=== PATIENT | female | born 1985 | race Hispanic/Latino ===

== ENCOUNTER 2018-07-23 01:09 | Emergency (ER) | payer SELFPAY ==
[2018-07-23] MEDS ORDERED: Morphine 4 MG/ML VIAL ONE (01:28)
[2018-07-23] MEDS ORDERED: Ondansetron PF 4 MG/2 ML Vial ONE (01:28)
[2018-07-23 01:31] LABS: #Basophils 0.1 thou/uL (0.0-0.2); #Eosinphils 0.1 thou/uL (0.0-0.7); #Lymphocytes 3.4 thou/uL (1.20-3.40); #Monocytes 0.6 thou/uL (0.11-0.59); #Neutrophils 3.5 thou/uL (1.40-6.50); %Basophils 1.5 % (0.0-1.0); %Eosinophils 1.4 % (0.0-10.0); %Lymphocytes 43.7 % (21.0-51.0); %Monocytes 7.8 % (0.0-10.0); %Neutrophils 45.6 % (42.0-75.0); Hemoglobin 11.4 g/dL (12.0-16.0); Mean Corpuscular HGB CONC 32.1 g/dL (32.0-36.0); Mean Corpuscular Hemoglobin 25.7 pg (27.0-31.0); Mean Corpuscular Volume 80.1 fL (78.0-98.0); Mean Platelet Volume 8.7 fL (7.4-10.4); Platelet Count 303 thou/uL (130-400); RBC Distribution Width 15.5 % (11.5-14.5); Red Blood Cell (RBC) Count 4.44 mill/uL (4.20-5.40); White Blood Cell (WBC) Count 7.7 thou/uL (4.8-10.8)
[2018-07-23 01:48] LABS: Bilirubin Negative (Negative); Blood, Urine Negative (Negative); Clarity CLOUDY (Clear); Glucose, Urine (Dipstick) Negative (Negative); Leukocyte Large (Negative); Nitrite Negative (Negative); Protein, Urine (Dipstick) Negative (Neg-Trace); pH, Urine 6.5 (5.0-9.0)
[2018-07-23 01:49] LABS: Bacteria/HPF 1+ HPF (None Seen); Hyaline Casts/LPF 0-3 HYALINE CAST LPF (0-3 Hyaline); Pathc Cast-AUWi Flag 0.14 (0-2.49); RBC/HPF 0-3 HPF (0-3)
[2018-07-23 01:51] LABS: Pregnancy Test - Urine (BHCG) Negative (Negative); Pregu Control Background? CLEAR/WHITE (CLR/WHITE); Pregu Control Bar Appear? YES (CONTROL BAR)
[2018-07-23 01:55] LABS: ALT (SGPT) 8 U/L (8-55); AST (SGOT) 18 U/L (5-34); Alkaline Phosphatase 86 U/L (40-150); Anion Gap 9 mmol/L (10-20); BUN (Urea Nitrogen) 8 mg/dL (7.0-18.7); Bilirubin, Total Less than 0.2 mg/dL (0.2-1.2); Calc. Creatinine Clearance 0 mL/min (70-130); Calcium 9.1 mg/dL (7.8-10.44); Carbon Dioxide 24 mmol/L (22-29); Chloride 107 mmol/L (98-107); Estimated GFR-MDRD Greater than 90; Globulin 3.1 g/dL (2.4-3.5); Glucose 98 mg/dL (70-105); Lipase 38 U/L (8-78); Potassium 3.4 mmol/L (3.5-5.1); Protein, Total 7.1 g/dL (6.0-8.3); Sodium 137 mmol/L (136-145)
== END 2018-07-23 02:07 | disposition home or self-care (01) ==
LOC: ERS 01:09
DX: R10.31 Right lower quadrant pain (principal); F17.200 Nicotine dependence, unspecified, uncomplicated
CPT/HCPCS: 80053; 81003; 81015; 81025; 83690; 85025; 96361; 96374; 96375; J2270; J2405

== ENCOUNTER 2018-12-23 13:38 | Emergency (ER) | payer SELFPAY ==
[2018-12-23] MEDS ORDERED: Acetaminophen 500 MG TAB ONE (15:02)
[2018-12-23 15:39] LABS: #Basophils 0.1 thou/uL (0.0-0.2); #Lymphocytes 1.9 thou/uL (1.20-3.40); #Monocytes 1.8 thou/uL (0.11-0.59); #Neutrophils 12.6 thou/uL (1.40-6.50); %Basophils 0.5 % (0.0-1.0); %Eosinophils 0.2 % (0.0-10.0); %Lymphocytes 11.7 % (21.0-51.0); %Monocytes 11.1 % (0.0-10.0); %Neutrophils 76.5 % (42.0-75.0); Mean Corpuscular HGB CONC 32.2 g/dL (32.0-36.0); Mean Corpuscular Hemoglobin 25.1 pg (27.0-31.0); Mean Platelet Volume 8.1 fL (7.4-10.4); Platelet Count 364 thou/uL (130-400); RBC Distribution Width 16.9 % (11.5-14.5); Red Blood Cell (RBC) Count 4.38 mill/uL (4.20-5.40); White Blood Cell (WBC) Count 16.5 thou/uL (4.8-10.8)
[2018-12-23 16:04] LABS: ALT (SGPT) 44 U/L (8-55); AST (SGOT) 56 U/L (5-34); Alkaline Phosphatase 110 U/L (40-150); Anion Gap 12 mmol/L (10-20); BUN (Urea Nitrogen) 6 mg/dL (7.0-18.7); Bilirubin, Total 0.5 mg/dL (0.2-1.2); Calc. Creatinine Clearance 0 mL/min (70-130); Calcium 9.5 mg/dL (7.8-10.44); Carbon Dioxide 26 mmol/L (22-29); Chloride 102 mmol/L (98-107); Estimated GFR-MDRD Greater than 90; Glucose 106 mg/dL (70-105); Potassium 3.9 mmol/L (3.5-5.1); Protein, Total 7.8 g/dL (6.0-8.3); Sodium 136 mmol/L (136-145)
[2018-12-23 16:07] LABS: Albumin 4.1 g/dL (3.5-5.0); Globulin 3.6 g/dL (2.4-3.5)
[2018-12-23 16:29] LABS: Bilirubin Negative (Negative); Blood, Urine Trace (Negative); Clarity CLOUDY (Clear); Glucose, Urine (Dipstick) Negative (Negative); Leukocyte Large (Negative); Nitrite Positive (Negative); Protein, Urine (Dipstick) Trace mg/dL (Neg-Trace); Specific Gravity, Urine 1.013 (1.002-1.036); pH, Urine 6.5 (5.0-9.0)
[2018-12-23 16:31] LABS: Pregnancy Test - Urine (BHCG) Negative (Negative); Pregu Control Background? CLEAR/WHITE (CLR/WHITE); Pregu Control Bar Appear? YES (CONTROL BAR); Specific Gravity 1.013 (1.002-1.036)
[2018-12-23 16:32] LABS: Bacteria/HPF 4+ HPF (None Seen); Hyaline Casts/LPF 7-10 HYALINE CAST LPF (0-3 Hyaline); Pathc Cast-AUWi Flag 0.54 (0-2.49); RBC/HPF 0-3 HPF (0-3)
[2018-12-23] MEDS ORDERED: Ketorolac Tromethamine 30 MG/ML VIAL ONE (18:35)
--- NOTE | 2018-12-23 19:17 | CT ---
CT abdomen noncontrast CT pelvis noncontrast: (Urolithiasis protocol) DATE: 12/23/2018 HISTORY: 33-year-old female with right flank pain COMPARISON: None TECHNIQUE: IV injection of iodinated contrast media: None Oral contrast media: None FINDINGS: Other than for urolithiasis, the lack of IV and oral contrast limits the evaluation. There is no hydronephrosis. There is mild right perirenal fat stranding. There is a tiny 1 or 2 mm ro und calcification in the right hemipelvis very close to the right UVJ. Uncertain whether this is a phlebolith or calculus in the distal ureter. No right hydroureter identified. No calculus within the kidneys. Minimal amount of free fluid in the cul-de-sac. No signs of colonic diverticulitis. No small bowel dilation. Within limitations of noncontrast scan, no abnormality identified involving lef t kidney, abdominal aorta, adrenals, pancreas, liver, or spleen. IMPRESSION: 1) no high-grade obstructive uropathy. 2) questionable mild right perirenal edema. This raises the possibility of either right pyelonephriti s or recently passed right ureteral calculus, or perhaps a tiny 1 or 2 mm calculus in the distal right ureter (unlikely)
[2018-12-23] MEDS ORDERED: Sodium Chloride 0.9% 100 ML ONE (19:44)
[2018-12-23] MEDS ORDERED: cefTRIAXone\\ROCEPHIN 1 GM VIAL ONE (19:44)
== END 2018-12-23 20:31 | disposition home or self-care (01) ==
LOC: ERS 13:38
DX: N12 Tubulo-interstitial nephritis, not specified as acute or chronic (principal); Z71.6 Tobacco abuse counseling; F17.200 Nicotine dependence, unspecified, uncomplicated
CPT/HCPCS: 36416; 74176; 80053; 81003; 81015; 81025; 85025; 96365; 96375; 99406; J0696; J1885; J3490

== ENCOUNTER 2019-07-11 14:16 | Emergency (ER) | payer SELFPAY ==
[2019-07-11 14:40] LABS: #Basophils 0.1 thou/uL (0.0-0.2); #Eosinphils 0.1 thou/uL (0.0-0.7); #Lymphocytes 2.4 thou/uL (1.20-3.40); #Monocytes 0.7 thou/uL (0.11-0.59); #Neutrophils 5.7 thou/uL (1.40-6.50); %Eosinophils 0.8 % (0.0-10.0); %Lymphocytes 27.1 % (21.0-51.0); %Monocytes 7.7 % (0.0-10.0); %Neutrophils 63.4 % (42.0-75.0); Mean Corpuscular Hemoglobin 26.4 pg (27.0-31.0); Mean Platelet Volume 9.1 fL (7.4-10.4); Platelet Count 298 thou/uL (130-400); RBC Distribution Width 16.7 % (11.5-14.5); Red Blood Cell (RBC) Count 4.54 mill/uL (4.20-5.40)
[2019-07-11 15:03] LABS: ALT (SGPT) 10 U/L (8-55); AST (SGOT) 20 U/L (5-34); Albumin 4.2 g/dL (3.5-5.0); Alkaline Phosphatase 86 U/L (40-110); Anion Gap 12 mmol/L (10-20); BUN (Urea Nitrogen) 7 mg/dL (7.0-18.7); Bilirubin, Total 0.2 mg/dL (0.2-1.2); Calc. Creatinine Clearance 0 mL/min (70-130); Calcium 9.3 mg/dL (7.8-10.44); Carbon Dioxide 23 mmol/L (22-29); Chloride 106 mmol/L (98-107); Estimated GFR-MDRD Greater than 90; Globulin 3.3 g/dL (2.4-3.5); Glucose 86 mg/dL (70-105); Lipase 30 U/L (8-78); Potassium 3.8 mmol/L (3.5-5.1); Protein, Total 7.5 g/dL (6.0-8.3); Sodium 137 mmol/L (136-145)
[2019-07-11] MEDS ORDERED: Ondansetron ODT 4 MG TAB ONE (17:19)
[2019-07-11 17:36] LABS: Bilirubin Negative (Negative); Blood, Urine Negative (Negative); Clarity Clear (Clear); Glucose, Urine (Dipstick) Normal (Negative); Leukocyte 75 Leu/uL (Negative); Nitrite Negative (Negative); Protein, Urine (Dipstick) Negative (Neg-Trace); RBC/HPF 0-3 HPF (0-3); Squamous Epithelial 0-3 HPF (0-3); Urobilinogen Normal mg/dL (Less than 2)
[2019-07-11 17:46] LABS: Pregnancy Test - Urine (BHCG) POSITIVE (Negative); Pregu Control Background? CLEAR/WHITE (CLR/WHITE); Pregu Control Bar Appear? YES (CONTROL BAR); Specific Gravity 1.006 (1.002-1.036)
[2019-07-11 17:54] LABS: Bacteria/HPF None Seen HPF (None Seen); Sperm/HPF Rare HPF (None Seen)
--- NOTE | 2019-07-11 20:01 | ULT ---
Exam: ultrasound less than 14 weeks exam includes transabdominal and vascular duplex with color a nd spectral Doppler imaging: HISTORY: Abdominal pain for 3 weeks FINDINGS: There is an early viable intrauterine with a crown-rump length of 1.8 cm equivalent to 8 we eks 2 days of gestation with an EDC of 02/17/2020. Gestational sac size is equivalent to 8 weeks 3 days. heart rate 169 bpm Right and left ovaries are within normal limits. Vascular flow is documented to both ovaries. Small l eft corpus luteum cyst. IMPRESSION: Early viable intrauterine .
== END 2019-07-11 21:40 | disposition home or self-care (01) ==
LOC: ERS 14:16
DX: O34.81 Maternal care for other abnormalities of pelvic organs, first trimester (principal); N83.12 Corpus luteum cyst of left ovary; Z3A.08 8 weeks gestation of pregnancy
CPT/HCPCS: 36415; 76856; 80053; 81003; 81015; 81025; 83690; 84702; 85025; 87086; 93976; Q0162

== ENCOUNTER 2019-08-26 18:14 | Emergency (ER) | payer SELFPAY ==
[2019-08-26 20:13] LABS: #Lymphocytes 1.9 thou/uL (1.20-3.40); #Monocytes 0.5 thou/uL (0.11-0.59); #Neutrophils 4.1 thou/uL (1.40-6.50); %Basophils 0.1 % (0.0-1.0); %Eosinophils 0.1 % (0.0-10.0); %Neutrophils 63.7 % (42.0-75.0); Hemoglobin 11.9 g/dL (12.0-16.0); Mean Corpuscular Volume 81.8 fL (78.0-98.0); Mean Platelet Volume 9.1 fL (7.4-10.4); Platelet Count 219 thou/uL (130-400); RBC Distribution Width 15.3 % (11.5-14.5); Red Blood Cell (RBC) Count 4.42 mill/uL (4.20-5.40); White Blood Cell (WBC) Count 6.4 thou/uL (4.8-10.8)
--- NOTE | 2019-08-26 21:09 | ULT ---
OB ULTRASOUND: 08/26/19 HISTORY: Vaginal discharge which is reported as clear. Real time imaging of the pelvis shows a single viable intrauterine in a predominantly trans verse lie. The placenta is posterior in location without evidence of previa. Cervical canal length is approximately 6 cm. No previa demonstrated. The heart rate is 157 beats per minute. measurements are as follows: BPD 3.2 cm 16 weeks, 0 days Head circumference 11.5 cm 15 weeks, 4 days Abdominal circumference 9.6 cm 15 weeks, 5 days Femur length 1.5 cm 14 weeks, 2 days IMPRESSION: 1. Single viable intrauterine in a transverse lie. Overall measurements corresponding to 15 weeks, 3 days. Estimated date of delivery is 02/14/20. 2. Placenta which is more posterior and right sided. No signs of previa. POS: [facility]
[2019-08-26 21:15] LABS: Bilirubin Negative (Negative); Blood, Urine Negative (Negative); Clarity Clear (Clear); Glucose, Urine (Dipstick) Normal (Negative); Leukocyte 250 Leu/uL (Negative); Nitrite Negative (Negative); Protein, Urine (Dipstick) Negative (Neg-Trace); RBC/HPF 0-3 HPF (0-3); Squamous Epithelial 0-3 HPF (0-3); Urobilinogen Normal mg/dL (Less than 2)
[2019-08-26 21:18] LABS: Bacteria/HPF 1+ HPF (None Seen)
[2019-08-26] MEDS ORDERED: Azithromycin 250 MG TAB ONE (22:26)
[2019-08-26] MEDS ORDERED: cefTRIAXone\\ROCEPHIN 250 MG VIAL ONE (22:26)
[2019-08-26] MEDS ORDERED: Lidocaine 1% (PF) 30 ML VIAL ONE (22:26)
[2019-08-31 00:55] LABS: Chlamydia by PCR Not Detected (NotDetected); GC by PCR Not Detected (NotDetected)
== END 2019-08-26 22:54 | disposition home or self-care (01) ==
LOC: ERS 18:14
DX: O98.312 Other infections with a predominantly sexual mode of transmission complicating pregnancy, second trimester (principal); A60.03 Herpesviral cervicitis; Z3A.16 16 weeks gestation of pregnancy; Z87.891 Personal history of nicotine dependence
CPT/HCPCS: 36415; 76815; 81003; 81015; 84702; 85025; 86900; 86901; 87086; 87252; 87480; 87491; 87510; 87591; 87660; 96372; J0696; J2001

== ENCOUNTER 2020-02-06 14:31 | Outpatient (CLI) | payer OTHER ==
[2020-02-07 13:14] LABS: SARS-CoV-2 MS2 Positive; SARS-CoV-2 N Gene Negative; SARS-CoV-2 S Gene Negative; SARS-CoV-2 orf1ab Negative
== END 2020-02-06 14:32 | disposition home or self-care (01) ==
LOC: SCSLAB 14:31
PROVIDERS: ATTEND Family Medicine
DX: Z01.812 Encounter for preprocedural laboratory examination (principal); Z11.59 Encounter for screening for other viral diseases
CPT/HCPCS: 87635; U0003

== ENCOUNTER 2020-02-09 12:45 | Inpatient (IN) | payer OTHER, SELFPAY ==
[2020-02-09] MEDS: Lactated Ringer's 1,000 ML IV SCH (20:00)
[2020-02-09 20:25] VITALS: BMI 29.2
--- NOTE | 2020-02-09 21:12 | PDOC.FPROB ---
FMR OB H&P: HPI - History of Present Illness Chief Complaint: eIOL Indentification: History of Present Illness: 34 yo at 39.4 wks by LMP c/w 8.0 wk sono who presents to the emergency department for eIOL. She is doing well without complaints. She denies vision change, POOL, chest pain, sob, RUQ pain, LE edema, vaginal discharge/bleeding/LOF , contractions. She has history of HSV2 cervicitis with IgG/IgM positive, started valtrex at 37.4 wks. Varicella non-immune, Anemia of , Hep C negative. Hx of empitigo during treated with mupirocin. [facility] FMR OB H&P: Current - Care : G4 Para: [id number] Gestational age: 39.4 Due date: 02/12/20 Dating Criteria: LMP c/w 8.0 wk sono Course/Complications: Varicella non-immune Choroid plexus cysts - no follow up needed per M HSV 2 Cervicitis - taking valtrex at 37.4 wks AMA - OB Labs Blood type: O RH: positive Antibody Screen: negative HIV: negative RPR: negative HepBsAg: negative Rubella: immune Urine drug screen: negative Gonorrhea: negative Chlamydia: negative Pap Smear: 08/11: HPV High Risk Other 1 hour gtt: 2 hr glucose negative GBS: negative H&H: 10.5/32.4 Platelets: 233 - Anatomy Survey Anatomy survey: 09/13/19: [place] 20%, normal amniotic fluid, bilateral choroid plexus cysts with otherwise normal initial anatomic survey, placental R Lateral w/o evidence of accreta/previa FMR OB H&P: History - Past Medical History PMH: Varicella non-immune - OB History OB History: HSV2 Cervicitis AMA Varicella non-immune - 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: Hx of HSV 2 cervicitis - Surgical History Sx History: None - Social History Social History: pt smoked 3 cigs a week prior to , drank prior to - Family History Family History: None FMR OB H&P: Medications - Current Home Medications: Medication Instructions Recorded Confirmed Type valACYclovir HCl [Valtrex] 1 tab PO BID 02/09/20 02/09/20 History Allergies/Adverse Reactions: Allergies Allergy/AdvReac Type Severity Reaction Status Date / Time No Known Allergies Allergy Verified 02/09/20 20:26 FMR OB H&P: ROS - Review of Systems General: denies: fever/chills, weight/appetite/sleep changes Eyes: denies: eye pain, vision changes ENT: denies: nasal congestion, rhinorrhea Cardiovascular: denies: chest pain, palpitation, edema Respiratory: denies: cough, shortness of breath Gastrointestinal: denies: abdominal pain, nausea, vomiting, diarrhea, constipation Genitourinary (Female): denies: dysuria, hematuria Musculoskeletal: denies: stiffness, tenderness Neurologic: denies: numbness, syncope Integumentary: denies: rash, lesions Hematologic/Lymphatic: denies: prolonged or excessive bleeding Psychological: denies: depression, anxiety FMR OB H&P: Vital Signs - Maternal Vital signs: Vital Signs - First Documented Temp Pulse Resp BP 98.2 F 75 16 119/80 02/09/20 20:18 02/09/20 20:18 02/09/20 20:18 02/09/20 20:18 - Heart Tones Baseline: 130 Variability: moderate Acceleration: present Deceleration: absent FMR OB H&P: Physical Exam - Physical Exam General: NAD, awake, alert and oriented HEENT: PERRLA, EOMI Neck: FROM, no JVD Heart: RRR, normal S1/S2, no murmurs/rubs/gallops, no edema General: CTAB, no respiratory distress, good air movement Abdomen: soft, gravid, fundus(cm) Musculoskeletal: normal gait and station, pulses present, FROM in all four extremities Neurological: cranial nerves II through XII intact, sensation to pain,touch and proprioception grossly normal Skin: no rash, capillary refill <2 seconds Lymphatic: no purpura, no petechia Psychiatric: intact recent and remote memory, good judgement and insight - Pelvic Exam Vulva: normal hair distribution, no lesions Cervix: no masses, no lesions SVE: 50/-3, soft, posterior Tolentino score: 4 FMR OB H&P: A/P - Problem List (1) Intrauterine Current Visit: Yes Status: Acute Code(s): Z34.90 - ENCNTR FOR SUPRVSN OF NORMAL , UNSP, UNSP TRIMESTER (2) Maternal varicella, non-immune Current Visit: Yes Status: Acute Code(s): O09.899 - SUPERVISION OF OTHER HIGH RISK PREGNANCIES, UNSP TRIMESTER; Z28.3 - UNDERIMMUNIZATION STATUS (3) HSV-2 infection complicating Current Visit: Yes Status: Acute Code(s): O98.519 - OTHER VIRAL DISEASES COMPLICATING , UNSP TRIMESTER; B00.9 - HERPESVIRAL INFECTION, UNSPECIFIED (4) AMA (advanced maternal age) multigravida 35+ Current Visit: Yes Status: Acute Code(s): O09.529 - SUPERVISION OF ELDERLY MULTIGRAVIDA, UNSPECIFIED TRIMESTER Disposition: Pt is a 34 yo at 39.4 wks by lmp c/w 8.0 wk sono who presents for eIOL: # IUP, Term Tolentino 4 FHT's WNL, accels present, no decels, no contractions - start cytotec # HSV 2 Cervicitis No lesions on speculum exam - pt taking prophylactic valtrex since 37.4 wks # AMA # Varicella Non-Immune # Choroid Plexus Cysts - no follow up needed per MFM # GBS Negative Dispo: admit to L&D for induction of labor Discussion: Date/Time: 02/09/202109 This H&P was discussed with Dr. Levi who agree with the above documentation and plan.
[2020-02-09] MEDS ORDERED: Promethazine HCl 25 MG/ML VIAL IM PRN (21:19)
[2020-02-09] MEDS ORDERED: Butorphanol Tartrate 1 MG/ML VIAL SLOW IVP PRN (21:19)
[2020-02-09] MEDS ORDERED: Acetaminophen 500 MG TAB PO PRN (21:19)
[2020-02-09] MEDS ORDERED: Ondansetron PF 4 MG/2 ML Vial IVP PRN (21:19)
[2020-02-09] MEDS ORDERED: hydrALAZINE 20 MG/ML VIAL SLOW IVP PRN (21:19)
[2020-02-09] MEDS ORDERED: Docusate 100 MG CAP PO PRN (21:19)
[2020-02-09 21:45] LABS: Hemoglobin 10.3 g/dL (12.0-16.0); Mean Corpuscular HGB CONC 32.3 g/dL (32.0-36.0); Mean Corpuscular Hemoglobin 25.5 pg (27.0-31.0); Mean Corpuscular Volume 78.9 fL (78.0-98.0); Mean Platelet Volume 11.3 fL (7.4-10.4); Platelet Count 220 thou/uL (130-400); RBC Distribution Width 15.4 % (11.5-14.5); Red Blood Cell (RBC) Count 4.03 mill/uL (4.20-5.40); White Blood Cell (WBC) Count 10.5 thou/uL (4.8-10.8)
[2020-02-09] MEDS ORDERED: Carboprost 250 MCG/ML AMP IM PRN (22:12)
[2020-02-09] MEDS ORDERED: Misoprostol 200 MCG TAB PR PRN (22:12)
[2020-02-09] MEDS ORDERED: Methylergonovine 0.2 MG/ML VIAL IM PRN (22:12)
[2020-02-09] MEDS ORDERED: NS / Oxytocin 40 units/1000ml 1,000 ML IV PRN (22:12)
[2020-02-09] MEDS ORDERED: HYDROcodone/Acetaminophen 5/325 mg Tablet PO PRN (22:12)
[2020-02-09] MEDS ORDERED: Lidocaine 1% (PF) 30 ML VIAL SC PRN (22:12)
[2020-02-09] MEDS ORDERED: Ibuprofen 800 MG TAB PO PRN (22:12)
[2020-02-09 22:18] LABS: Syphilis Antibody Nonreactive (Nonreactive); Syphilis Antibody Index 0.06 S/CO (<1.00 Non-Reactive)
[2020-02-09] MEDS ORDERED: NS w/ Oxytocin 10 units 500 ML IV SCH (22:30)
[2020-02-09] MEDS: Misoprostol 100 MCG TAB VAG SCH (22:30)
[2020-02-09 23:40] LABS: HBSAg Index 0.16 S/CO (0-0.99); HIV (1/2) Antibody/Antigen Non-Reactive (NonReactive); HIV 1/2 INDEX 0.07 S/CO (<1.00); Hep B Surf Ag Non-Reactive S/CO (NonReactive)
[2020-02-09] MEDS ORDERED: valACYclovir 500 MG TAB PO SCH (23:45)
[2020-02-10] MEDS: Misoprostol 100 MCG TAB VAG SCH ×3 (02:20→16:58)
--- NOTE | 2020-02-10 02:25 | PDOC.LDPN ---
Labor & Delivery Progress Note - Subjective Subjective: comfortable, vaginal pressure - Objective Vital signs reviewed and normal: yes SVE: 2/50-3 at 0130 FHT: category 1, variability present [place] contractions every: q2-3mins - Assessment (1) Intrauterine Code(s): Z34.90 - ENCNTR FOR SUPRVSN OF NORMAL , UNSP, UNSP TRIMESTER Current Visit: Yes Status: Acute (2) Maternal varicella, non-immune Code(s): O09.899 - SUPERVISION OF OTHER HIGH RISK PREGNANCIES, UNSP TRIMESTER; Z28.3 - UNDERIMMUNIZATION STATUS Current Visit: Yes Status: Acute (3) HSV-2 infection complicating Code(s): O98.519 - OTHER VIRAL DISEASES COMPLICATING , UNSP TRIMESTER; B00.9 - HERPESVIRAL INFECTION, UNSPECIFIED Current Visit: Yes Status: Acute (4) AMA (advanced maternal age) multigravida 35+ Code(s): O09.529 - SUPERVISION OF ELDERLY MULTIGRAVIDA, UNSPECIFIED TRIMESTER Current Visit: Yes Status: Acute Plan: continue plan of care -: Pt is a 34 yo at 39.5 wks by lmp c/w 8.0 wk sono who presents for eIOL: # IUP, Term FHT's 140, accels present, no decels, contractions q2-3mins. s/p 1 cytotec but currently nicky too frequently to administer a second dose. Will re- evaluate when tachysystole has subsided. # HSV 2 Cervicitis No lesions on speculum exam - pt taking prophylactic valtrex since 37.4 wks # AMA # Varicella Non-Immune # Choroid Plexus Cysts - no follow up needed per MFM # GBS Negative Dispo: continue to monitor labor progression
--- NOTE | 2020-02-10 05:45 | PDOC.LDPN ---
Labor & Delivery Progress Note - Objective Vital signs reviewed and normal: yes - Assessment (1) Intrauterine Code(s): Z34.90 - ENCNTR FOR SUPRVSN OF NORMAL , UNSP, UNSP TRIMESTER Current Visit: Yes Status: Acute (2) Maternal varicella, non-immune Code(s): O09.899 - SUPERVISION OF OTHER HIGH RISK PREGNANCIES, UNSP TRIMESTER; Z28.3 - UNDERIMMUNIZATION STATUS Current Visit: Yes Status: Acute (3) HSV-2 infection complicating Code(s): O98.519 - OTHER VIRAL DISEASES COMPLICATING , UNSP TRIMESTER; B00.9 - HERPESVIRAL INFECTION, UNSPECIFIED Current Visit: Yes Status: Acute (4) AMA (advanced maternal age) multigravida 35+ Code(s): O09.529 - SUPERVISION OF ELDERLY MULTIGRAVIDA, UNSPECIFIED TRIMESTER Current Visit: Yes Status: Acute Plan: continue plan of care -: Pt is a 34 yo at 39.5 wks by lmp c/w 8.0 wk sono who presents for eIOL: # IUP, Term FHT's 130, accels present, no decels, contractions q2-3mins. s/p 1 cytotec but currently nicky too frequently to administer a second dose. But she is making change and currently /2. # HSV 2 Cervicitis No lesions on speculum exam - pt taking prophylactic valtrex since 37.4 wks # AMA # Varicella Non-Immune # Choroid Plexus Cysts - no follow up needed per M # GBS Negative Dispo: continue to monitor labor progression
[2020-02-10] MEDS: Lactated Ringer's 1,000 ML IV SCH ×2 (06:36→16:56)
--- NOTE | 2020-02-10 12:17 | PDOC.LDPN ---
Labor & Delivery Progress Note - Subjective Subjective: comfortable, painful contractions - Objective Vital signs reviewed and normal: yes General: NAD - Assessment (1) AMA (advanced maternal age) multigravida 35+ Code(s): O09.529 - SUPERVISION OF ELDERLY MULTIGRAVIDA, UNSPECIFIED TRIMESTER Current Visit: Yes Status: Acute (2) HSV-2 infection complicating Code(s): O98.519 - OTHER VIRAL DISEASES COMPLICATING , UNSP TRIMESTER; B00.9 - HERPESVIRAL INFECTION, UNSPECIFIED Current Visit: Yes Status: Acute (3) Intrauterine Code(s): Z34.90 - ENCNTR FOR SUPRVSN OF NORMAL , UNSP, UNSP TRIMESTER Current Visit: Yes Status: Acute -: Pt is a 34 yo at 39.5 wks by lmp c/w 8.0 wk sono who presents for eIOL: # IUP, Term FHT's 130, accels present, no decels, contractions q2-3mins. ] s/p 1 cytotec 2230 5/80/-2, AROM, light mec at 1200 Expectant Management # HSV 2 Cervicitis No lesions on speculum exam - pt taking prophylactic valtrex since 37.4 wks # AMA # Varicella Non-Immune # Choroid Plexus Cysts - no follow up needed per MFM # GBS Negative
--- NOTE | 2020-02-10 14:00 | PDOC.LDPN ---
Labor & Delivery Progress Note - Subjective Subjective: comfortable, painful contractions - Objective Vital signs reviewed and normal: yes - Assessment (1) AMA (advanced maternal age) multigravida 35+ Code(s): O09.529 - SUPERVISION OF ELDERLY MULTIGRAVIDA, UNSPECIFIED TRIMESTER Current Visit: Yes Status: Acute (2) HSV-2 infection complicating Code(s): O98.519 - OTHER VIRAL DISEASES COMPLICATING , UNSP TRIMESTER; B00.9 - HERPESVIRAL INFECTION, UNSPECIFIED Current Visit: Yes Status: Acute (3) Intrauterine Code(s): Z34.90 - ENCNTR FOR SUPRVSN OF NORMAL , UNSP, UNSP TRIMESTER Current Visit: Yes Status: Acute -: Pt is a 34 yo at 39.5 wks by lmp c/w 8.0 wk sono who presents for eIOL: # IUP, Term FHT's 130, accels present, no decels, contractions q2-3mins. ] s/p 1 cytotec 2230 5/80/-2, AROM, light mec at 1200 7/80/-1 @ 1400 Expectant Management # HSV 2 Cervicitis No lesions on speculum exam - pt taking prophylactic valtrex since 37.4 wks # AMA # Varicella Non-Immune # Choroid Plexus Cysts - no follow up needed per MFM # GBS Negative
--- NOTE | 2020-02-10 15:40 | PDOC.LDPN ---
Labor & Delivery Progress Note - Subjective Subjective: comfortable, painful contractions - Objective Vital signs reviewed and normal: yes - Assessment (1) AMA (advanced maternal age) multigravida 35+ Code(s): O09.529 - SUPERVISION OF ELDERLY MULTIGRAVIDA, UNSPECIFIED TRIMESTER Current Visit: Yes Status: Acute (2) HSV-2 infection complicating Code(s): O98.519 - OTHER VIRAL DISEASES COMPLICATING , UNSP TRIMESTER; B00.9 - HERPESVIRAL INFECTION, UNSPECIFIED Current Visit: Yes Status: Acute (3) Intrauterine Code(s): Z34.90 - ENCNTR FOR SUPRVSN OF NORMAL , UNSP, UNSP TRIMESTER Current Visit: Yes Status: Acute -: Pt is a 34 yo at 39.5 wks by lmp c/w 8.0 wk sono who presents for eIOL: # IUP, Term FHT's 130, accels present, early decels, contractions q2-3mins. ] s/p 1 cytotec 2230 5/80/-2, AROM, light mec at 1200 7/80/-1 @ 1400 8/100/-1 @ 1530 Expectant Management # HSV 2 Cervicitis No lesions on speculum exam - pt taking prophylactic valtrex since 37.4 wks # AMA # Varicella Non-Immune # Choroid Plexus Cysts - no follow up needed per MFM # GBS Negative
[2020-02-10] MEDS ORDERED: Misoprostol 200 MCG TAB ONE (16:32)
--- NOTE | 2020-02-10 16:44 | PDOC.OPDEL ---
OB Operative/Delivery Note - Additional Findings/Plan Compilations/Other Findings: Vaginal Delivery Procedure note Delivering Physician: Dr. Garner Attending: Dr. Russo Procedure: Spontaneous Vaginal Delivery Anesthesia: none QBL: 150 ml Pre-op Diagnosis: 1. Term intrauterine in labor 2. AMA 3. HSV 4. Varicella non-immune Post-op Diagnosis: 1. Term intrauterine , delivered 2. same as above Indications: A 34y/o female presented for elective induction of labor Delivery Note: This is 34y/o female @ 39.4wks who delivered a viable F at 1621. Following an uneventful antepartum course (cytotec induction x1) , a vigorous female was delivered over an intact perineum in the OA position. Anterior Shoulder and then remainder of the body delivered. No nuchal cord. The head was held down and mouth and nares were bulb suctioned. Cord clamped and cut and cord blood collected. Placenta delivered intact [place] presentation with a 3 vessel cord noted. Fundal massage was performed and the fundus was firm. The cervix and vagina were inspected and found to be free of laceration. Hemostasis was appreciated. Pitocin was administered and cytotec 800mcg was administered 2/2 multiparity. The did well, the Apgars were 8/9 at 1 & 5 minutes, respectively. [place] was transferred to nursery in good condition. Patient tolerated delivery well and went to after routine recovery/ care. ATTENDING ADDENDUM: I was present for the delivery and agree with the above documentation.
[2020-02-10] MEDS ORDERED: Lanolin Ointment 7 GM TUBE TOP PRN (18:17)
[2020-02-10] MEDS ORDERED: Benzocaine-Menthol 82.5 ML CAN TOP PRN (18:17)
[2020-02-10] MEDS ORDERED: Bisacodyl 10 MG SUPP PR PRN (18:17)
[2020-02-10] MEDS ORDERED: hydrALAZINE 20 MG/ML VIAL SLOW IVP PRN (18:17)
[2020-02-10] MEDS ORDERED: Milk Of Magnesia 30 ML UDCUP PO PRN (18:17)
[2020-02-10] MEDS ORDERED: NS / Oxytocin 40 units/1000ml 1,000 ML ONE (18:20)
[2020-02-10] MEDS ORDERED: NS / Oxytocin 40 units/1000ml 1,000 ML IV SCH (18:30)
[2020-02-10] MEDS ORDERED: Ferrous Sulfate 325 MG TAB PO SCH (18:45)
[2020-02-10] MEDS: Docusate Calcium (SURFAK) 240 MG CAP PO SCH (21:54)
[2020-02-10] MEDS: Acetaminophen 325 MG TAB PO PRN (21:54)
[2020-02-11] MEDS: Ibuprofen 800 MG TAB PO SCH ×2 (02:58→07:43)
[2020-02-11] MEDS ORDERED: HYDROcodone/Acetaminophen 5/325 mg Tablet PO SCH (05:00)
[2020-02-11] MEDS: Acetaminophen 325 MG TAB PO PRN (05:13)
[2020-02-11] MEDS ORDERED: Ferrous Sulfate 325 MG TAB PO SCH (08:00)
--- NOTE | 2020-02-11 08:20 | PDOC.PP ---
Post Progress Note Post Day #: 1 Subjective: This morning mom states she is having cramping throughout her abdomen. She states she tolerated a normal supper last night without difficulty last night. Also she states that she had a bowel movement without difficulty last night. She denies fevers, chills, or sweats. She is ambulating without difficulty. PO intake tolerated: yes Flatus: yes Ambulation: yes Vital Signs (12 hours) Temp Pulse Resp BP 02/11/20 02:59 98.7 F 70 16 106/67 Weight Weight 72.575 kg - Physical Examination General: NAD Cardiovascular: no m/r/g, RRR Respiratory: clear to auscultation bilaterally Abdominal: + bowel sounds, lochia, appropriately TTP Fundus firm & at: umbilicus Skin: no rash Neurological: no gross focal deficits Psychiatric: A&Ox3, normal affect Result Diagrams: 02/09/20 21:25 Additional Labs: Post Labs Blood Type O POSITIVE 02/09/20 21:25 Hep Bs Antigen Non-Reactive S/CO (NonReactive) 02/09/20 21:28 (1) AMA (advanced maternal age) multigravida 35+ Code(s): O09.529 - SUPERVISION OF ELDERLY MULTIGRAVIDA, UNSPECIFIED TRIMESTER Status: Acute (2) HSV-2 infection complicating Code(s): O98.519 - OTHER VIRAL DISEASES COMPLICATING , UNSP TRIMESTER; B00.9 - HERPESVIRAL INFECTION, UNSPECIFIED Status: Acute (3) Intrauterine Code(s): Z34.90 - ENCNTR FOR SUPRVSN OF NORMAL , UNSP, UNSP TRIMESTER Status: Acute - Assessment/Plan Pt is a 34 yo who is PPD1 from # PPD1 - QBL 150ml, scant bleeding overnight - formula feeding # Abdominal pain, suspected cramping 2/2 multiparity - no fevers, chills, sweats - tolerated PO, s/p BM - will give norco, simethicone. Rec'd heating pad. Monitor vitals. - G4 # HSV 2 Cervicitis # AMA # Varicella Non-Immune - s/p varicella
[2020-02-11] MEDS ORDERED: Simethicone Chewable 80 MG TAB PO SCH (08:27)
[2020-02-11] MEDS ORDERED: Varicella virus, LIVE 0.5 ML VIAL SC ONE (09:00)
[2020-02-11] MEDS ORDERED: Adacel (T-DAP) 0.5 ML SYRINGE IM ONE (09:00)
[2020-02-11] MEDS: Docusate Calcium (SURFAK) 240 MG CAP PO SCH (09:59)
[2020-02-11] MEDS ORDERED: HYDROcodone/Acetaminophen 10/325 mg Tablet PO SCH (11:00)
[2020-02-11 15:38] VITALS: BP 101/58; TEMP 98.9
== END 2020-02-11 18:37 | disposition home or self-care (01) | DRG 806 ==
LOC: L&D 19:51 → 3SE 02-10 20:00
PROVIDERS: ADMIT Family Medicine; ATTEND Family Medicine
PROC: 10E0XZZ Delivery of Products of Conception, External Approach (ICD-10-PCS; principal; 2020-02-10)
PROC: 10907ZC Drainage of Amniotic Fluid, Therapeutic from Products of Conception, Via Natural or Artificial Opening (ICD-10-PCS; 2020-02-10)
PROC: 3E033VJ Introduction of Other Hormone into Peripheral Vein, Percutaneous Approach (ICD-10-PCS; 2020-02-10)
DX: O77.0 Labor and delivery complicated by meconium in amniotic fluid (principal); O98.52 Other viral diseases complicating childbirth; Z37.0 Single live birth; A60.03 Herpesviral cervicitis; Z3A.39 39 weeks gestation of pregnancy; G93.0 Cerebral cysts; O35.8XX0 Maternal care for other (suspected) fetal abnormality and damage, not applicable or unspecified; O99.334 Smoking (tobacco) complicating childbirth; F17.210 Nicotine dependence, cigarettes, uncomplicated
CPT/HCPCS: 36415; 85027; 86780; 86850; 86900; 86901; 87340; 87389

== ENCOUNTER 2021-02-06 10:11 | Emergency (ER) | payer SELFPAY ==
[2021-02-06] MEDS ORDERED: Ketorolac Tromethamine 30 MG/ML VIAL ONE (11:51)
[2021-02-06 12:28] LABS: Bacteria/HPF None Seen HPF (None Seen); Bilirubin Negative (Negative); Blood, Urine 1+ (Negative); Clarity Clear (Clear); Glucose, Urine (Dipstick) Normal (Negative); Ketone, Urine Negative (Negative); Leukocyte Negative Leu/uL (Negative); Nitrite Negative (Negative); Protein, Urine (Dipstick) Negative (Neg-Trace); RBC/HPF 0-3 HPF (0-3); Specific Gravity, Urine 1.007 (1.002-1.036); Squamous Epithelial 0-3 HPF (0-3); Urobilinogen Normal mg/dL (Less than 2); WBC/HPF 0-3 HPF (0-3); pH, Urine 6.5 (5.0-9.0)
== END 2021-02-06 13:01 | disposition home or self-care (01) ==
LOC: ERS 10:11
DX: M79.672 Pain in left foot (principal); M79.671 Pain in right foot; N94.6 Dysmenorrhea, unspecified; Z87.891 Personal history of nicotine dependence
CPT/HCPCS: 36416; 81003; 81015; 87086; 96372; 99284; J1885

== ENCOUNTER 2021-08-01 20:34 | Emergency (ER) | payer SELFPAY ==
[2021-08-01 23:46] LABS: Pregnancy Test - Urine (BHCG) Negative (Negative)
[2021-08-01 23:47] LABS: Pregu Control Background? CLEAR/WHITE (CLR/WHITE); Pregu Control Bar Appear? YES (CONTROL BAR)
[2021-08-01 23:48] LABS: Specific Gravity 1.016 (1.002-1.036)
== END 2021-08-02 00:19 | disposition home or self-care (01) ==
LOC: ERS 20:34
DX: N64.4 Mastodynia (principal); Z87.891 Personal history of nicotine dependence
CPT/HCPCS: 81025; 99283

== ENCOUNTER 2022-05-08 21:54 | Emergency (ER) | payer SELFPAY ==
[2022-05-08 23:03] LABS: Bacteria/HPF None Seen HPF (None Seen); Bilirubin Negative (Negative); Blood, Urine 2+ (Negative); Clarity Clear (Clear); Glucose, Urine (Dipstick) Normal (Negative); Ketone, Urine Negative (Negative); Leukocyte Negative Leu/uL (Negative); Nitrite Negative (Negative); Protein, Urine (Dipstick) Negative (Neg-Trace); Specific Gravity, Urine 1.011 (1.002-1.036); Squamous Epithelial 0-3 HPF (0-3); Urobilinogen Normal mg/dL (Less than 2); WBC/HPF 0-3 HPF (0-3)
[2022-05-08] MEDS ORDERED: Mag-Al 1200 mg/1200 mg/30 ML UDCUP ONE (23:06)
[2022-05-08 23:26] LABS: #Basophils 0.1 thou/uL (0.0-0.2); #Eosinphils 0.2 thou/uL (0.0-0.7); #Lymphocytes 3.5 thou/uL (1.20-3.40); #Monocytes 0.7 thou/uL (0.11-0.59); #Neutrophils 4.6 thou/uL (1.40-6.50); %Basophils 0.8 % (0.0-1.0); %Eosinophils 2.1 % (0.0-10.0); %Lymphocytes 38.4 % (21.0-51.0); %Monocytes 8.1 % (0.0-10.0); %Neutrophils 50.6 % (42.0-75.0); Hemoglobin 11.4 g/dL (12.0-16.0); Mean Corpuscular HGB CONC 32.4 g/dL (32.0-36.0); Mean Corpuscular Hemoglobin 26.6 pg (27.0-31.0); Mean Corpuscular Volume 82.1 fL (78.0-98.0); Mean Platelet Volume 9.2 fL (7.4-10.4); Platelet Count 264 thou/uL (130-400); RBC Distribution Width 14.5 % (11.5-14.5); Red Blood Cell (RBC) Count 4.28 mill/uL (4.20-5.40); White Blood Cell (WBC) Count 9.1 thou/uL (4.8-10.8)
[2022-05-08 23:47] LABS: ALT (SGPT) 26 U/L (8-55); AST (SGOT) 34 U/L (5-34); Albumin 4.3 g/dL (3.5-5.0); Alkaline Phosphatase 113 U/L (40-110); Anion Gap 13 mmol/L (10-20); BUN (Urea Nitrogen) 9 mg/dL (7.0-18.7); Bilirubin, Total 0.2 mg/dL (0.2-1.2); Calc. Creatinine Clearance 0 mL/min (70-130); Calcium 9.1 mg/dL (7.8-10.44); Carbon Dioxide 26 mmol/L (22-29); Chloride 103 mmol/L (98-107); Estimated GFR 109; Globulin 3.8 g/dL (2.4-3.5); Glucose 88 mg/dL (70-105); Lipase 41 U/L (8-78); Potassium 3.6 mmol/L (3.5-5.1); Protein, Total 8.1 g/dL (6.0-8.3); Sodium 138 mmol/L (136-145)
[2022-05-09] MEDS ORDERED: Ketorolac Tromethamine 30 MG/ML VIAL ONE
== END 2022-05-09 02:57 | disposition home or self-care (01) ==
LOC: ERS 21:54
DX: K80.20 Calculus of gallbladder without cholecystitis without obstruction (principal); F17.200 Nicotine dependence, unspecified, uncomplicated
CPT/HCPCS: 71045; 76705; 80053; 81003; 81015; 83690; 84484; 85025; 87086; 93005; 96374; J1885